=== PATIENT | female | born 1990 | race Caucasian/White ===

== ENCOUNTER 2018-03-18 13:53 | Emergency (ER) | payer MEDICAID ==
[~2018-03-18] VITALS: Ht 157.5 cm; Wt 114.0 kg
[2018-03-18 13:57] VITALS: BP 146/86
== END 2018-03-18 14:59 | disposition home or self-care (01) ==
LOC: ER 13:54
DX: M25.562 Pain in left knee (principal); G89.29 Other chronic pain
CPT/HCPCS: 73564; 99284

== ENCOUNTER 2019-10-10 09:15 | Emergency (ER) | payer MEDICAID ==
[~2019-10-10] VITALS: Ht 157.5 cm; Wt 121.0 kg
[2019-10-10 09:24] VITALS: BP 170/103
[2019-10-10] MEDS ORDERED: penicillin V potassium 500mg tablet PO ONE (10:00)
[2019-10-10] MEDS ORDERED: PENI500T2 PO (10:01)
[2019-10-10] MEDS ORDERED: HYDR-4353 PO (10:17)
== END 2019-10-10 10:20 | disposition home or self-care (01) ==
LOC: ER 09:15
DX: K02.9 Dental caries, unspecified (principal); R22.1 Localized swelling, mass and lump, neck; G89.29 Other chronic pain; Z79.899 Other long term (current) drug therapy
CPT/HCPCS: 99283

== ENCOUNTER 2020-02-04 15:22 | Emergency (ER) | payer MEDICAID ==
[~2020-02-04] VITALS: Ht 157.5 cm; Wt 115.0 kg
[2020-02-04 15:31] VITALS: BP 148/104
== END 2020-02-04 16:42 | disposition home or self-care (01) ==
LOC: ER 15:22
DX: B07.8 Other viral warts (principal); M79.645 Pain in left finger(s); G89.29 Other chronic pain
CPT/HCPCS: 99282